=== PATIENT | male | born 1965 | race African-American/Black ===

== ENCOUNTER 2018-08-03 17:15 | Emergency (ER) | payer SELFPAY ==
[2018-08-03] MEDS ORDERED: CLINDAMYCIN HCL 150 MG CAPSULE PO ONE ×2 (19:55→19:56)
--- NOTE | 2018-08-03 19:58 | ER Document Report ---
HPI - HPI Time Seen by Provider: 08/03/18 19:01 Pain Level: 2 Notes: Patient is a 53-year-old male presented to the emergency department with swelling to his upper eyelid, eye irritation and headache. At the time of evaluation patient reports his headache is completely resolved. He states all symptoms started yesterday morning when he woke up. He does state that he has mild blurred vision but no eye pain. - CONSTITUTIONAL Constitutional: DENIES: Fever, Chills - EENT EENT: REPORTS: Eye problems. DENIES: Sore Throat, Ear Pain - NEURO Neurology: REPORTS: Headache. DENIES: Weakness, Vision blurred, Dizzinesss / Vertigo - CARDIOVASCULAR Cardiovascular: DENIES: Chest pain - RESPIRATORY Respiratory: DENIES: Trouble Breathing, Coughing - GASTROINTESTINAL Gastrointestinal: DENIES: Abdominal Pain, Black / Bloody Stools - URINARY Urinary: DENIES: Dysuria, Urgency, Frequency - MUSCULOSKELETAL Musculoskeletal: DENIES: Extremity pain Past Medical History - General Information source: Patient - Social History Smoking Status: Current Every Day Smoker Chew tobacco use (# tins/day): No Frequency of alcohol use: None Drug Abuse: None Family History: Reviewed & Not Pertinent Patient has suicidal ideation: No Patient has homicidal ideation: No - Medical History Medical History: Negative Renal/ Medical History: Denies: Hx Peritoneal Dialysis Surgical Hx: Negative - Immunizations Hx Diphtheria, Pertussis, Tetanus Vaccination: No - unsure Vertical Provider Document - CONSTITUTIONAL Notes: PHYSICAL EXAMINATION: GENERAL: Well-appearing, well-nourished and in no acute distress. HEAD: Atraumatic, normocephalic. EYES: Pupils equal round extraocular movements intact, conjunctiva are normal. Swelling noted to left upper lid. ENT: Nares patent. Swelling noted to left upper lid. NECK: Normal range of motion LUNGS: No respiratory distress Musculoskeletal: Normal range of motion NEUROLOGICAL: Normal speech, normal gait. PSYCH: Normal mood, normal affect. SKIN: Warm, Dry, normal turgor, no rashes or lesions noted. - INFECTION CONTROL TRAVEL OUTSIDE OF THE [place] IN LAST 30 DAYS: No Course - Re-evaluation Re-evalutation: 08/03/18 20:14 Eye exam was performed using fluorescein stain and Clements lamp. No corneal abrasion noted. Patient has no pain with ocular movement. There is swelling to the left upper lid. Patient will be started on oral antibiotics and will follow up with ophthalmology. - Vital Signs Vital signs: Temp Pulse Resp BP Pulse Ox 97.7 F 91 18 125/81 96 08/03/18 17:19 08/03/18 17:19 08/03/18 17:19 08/03/18 17:19 08/03/18 17:19 Discharge - Discharge Clinical Impression: Cellulitis Qualifiers: Site of cellulitis: other site Qualified Code(s): L03.818 - Cellulitis of other sites Condition: Stable Disposition: HOME, SELF-CARE Additional Instructions: Your eye exam today did not show any evidence of corneal abrasion. I have a low suspicion for having what we call periorbital cellulitis due to the fact that you do not have increased pain with eye movement. What you do have appears to be cellulitis to the upper eyelid. Please take the medication as prescribed. Finish all of the medications even if your symptoms completely resolved. If your symptoms do not improve significantly over the next 1 to 2 days please call [facility] and get an appointment with an sample card maker. I have enclosed their phone number on this paper. Please return to the emergency department with any new or worsening symptoms. Prescriptions: Clindamycin HCl 300 mg PO TID #30 capsule Referrals: MAHI CARRILLO MD [ACTIVE STAFF] - Follow up as needed
[2018-08-03 20:27] VITALS: BP 133/76
== END 2018-08-03 20:23 | disposition home or self-care (01) ==
LOC: ER 17:15
DX: L03.818 Cellulitis of other sites (principal); R22.0 Localized swelling, mass and lump, head; R51 Headache; F17.200 Nicotine dependence, unspecified, uncomplicated
CPT/HCPCS: 99282